=== PATIENT | female | born 1950 | race African-American/Black ===

== ENCOUNTER 2017-12-20 10:15 | Day surgery (SDC) | payer OTHER, BC ==
[2017-12-10 09:29] VITALS: BMI 58.0
[~2017-12-20 10:15] MED LIST: PNEUMOC 13-VAL CONJ-DIP CRM/PF 0.5 ML DISP.SYRIN IM ONE
--- NOTE | 2017-12-20 10:46 | HP ---
Admitting History and Physical - Admission Chief Complaint: Morbid obesity History Source: Patient Limitations to Obtaining History: No Limitations - Past Medical History Cardiovascular: Yes: HTN Gastrointestinal: Yes: Other (Morbid obesity) Endocrine: Yes: Diabetes Mellitus - Smoking History Smoking history: Never smoked - Alcohol/Substance Use Hx Alcohol Use: No Home Medications - Allergies Allergies/Adverse Reactions: Allergies Allergy/AdvReac Type Severity Reaction Status Date / Time Penicillins Allergy Verified 12/10/17 09:29 - Home Medications Home Medications: Ambulatory Orders Amla Fruit Capsule 400 mg PO DAILY 12/10/17 Aspirin 81 mg PO DAILY 12/10/17 Biotin 10,000 mcg PO DAILY 12/10/17 Cholecalciferol (Vitamin D3) [Vitamin D3 -] 400 unit PO DAILY 12/10/17 Insulin Degludec [Tresiba Flextouch U-100] 15 unit SQ DAILY 12/10/17 Turmeric Root Extract [Turmeric] 500 mg PO DAILY 12/10/17 Valsartan/Hydrochlorothiazide [Valsartan-Hctz 160-12.5 mg Tab] 1 each PO DAILY 12/10/17 Famotidine [Pepcid] 20 mg PO BID #60 tablet 12/20/17 Oxycodone HCl/Acetaminophen [Percocet 5-325 mg Tablet] 1 - 2 tab PO Q6H #28 tab MDD 4 12/20/17 Family Disease History - Family Disease History Family History: Unremarkable Review of Systems - Review of Systems Constitutional: denies: Chills, Fever HENT: reports: No Symptoms Neck: reports: No Symptoms Cardiovascular: reports: No Symptoms Respiratory: reports: No Symptoms Gastrointestinal: denies: Abdominal Pain Neurological: denies: Change in LOC Pain Intensity: 0 Physical Examination Constitutional: Yes: Calm HENT: Yes: WNL Neck: Yes: WNL Cardiovascular: Yes: WNL Respiratory: Yes: Regular Gastrointestinal: Yes: Soft, Abdomen, Obese Neurological: Yes: Alert, Oriented Problem List - Problems (1) BMI 50.0-59.9, adult Code(s): Z68.43 - BODY MASS INDEX (BMI) 50-59.9 , ADULT (2) Diabetes mellitus Code(s): E11.9 - TYPE 2 DIABETES MELLITUS WITHOUT COMPLICATIONS Qualifiers: Diabetes mellitus type: other specified (including BHAVNA) Diabetes mellitus snf insulin use: unspecified medical terminologist insulin use status Diabetes mellitus complication status: without complication Qualified Code(s): E13.9 - Other specified diabetes mellitus without complications (3) Hypertension Code(s): I10 - ESSENTIAL (PRIMARY) HYPERTENSION Qualifiers: Hypertension type: unspecified Qualified Code(s): I10 - Essential (primary ) hypertension (4) Morbid obesity due to excess calories Code(s): E66.01 - MORBID (SEVERE) OBESITY DUE TO EXCESS CALORIES Assessment/Plan Laparoscopic possible open vertical sleeve gastrectomy, possible liver biopsy, EGD
[2017-12-20 10:53] VITALS: BP 141/94; PULSE 102; TEMP 97.8
[2017-12-20] MEDS ORDERED: INSULIN SLIDING SCALE (NOVOLOG) 1 VIAL SQ SCH (11:00)
[2017-12-20] MEDS ORDERED: DEXAMETHASONE SOD PHOSPHATE 4 MG/1 ML VIAL ONE (11:07)
[2017-12-20] MEDS ORDERED: LIDOCAINE HCL/PF 2% SDV 5ML VIAL ONE (11:07)
[2017-12-20] MEDS ORDERED: fentaNYL CITRATE 250 MCG/5 ML VIAL ONE (11:07)
[2017-12-20] MEDS ORDERED: PROPOFOL 20 ML ONE (11:07)
[2017-12-20] MEDS ORDERED: MIDAZOLAM HCL 2 MG/2 ML SINGLE DOSE VIAL ONE (11:07)
[2017-12-20] MEDS ORDERED: SUCCINYLCHOLINE CHLORIDE 200 MG/10 ML VIAL ONE (11:07)
[2017-12-20] MEDS ORDERED: ROCURONIUM BROMIDE 50 MG/5 ML VIAL ONE (11:07)
== END 2017-12-20 12:00 | disposition home or self-care (01) | DRG 641 ==
LOC: JASU-SURG 10:15 → UNDOADMIN 10:15 → JSAMEDAYSX 10:15 → JASU-SURG 12:00 → UNDODISIN 12:00 → EDSTATUS 12:30
PROVIDERS: ATTEND Surgery
PROC: 0DQ64ZZ Repair Stomach, Percutaneous Endoscopic Approach (ICD-10-PCS; principal; 2017-12-20)
DX: Z53.8 Procedure and treatment not carried out for other reasons (principal)
CPT/HCPCS: 82962; 86850; 86900; 86901